=== PATIENT | female | born 1950 | race Caucasian/White ===

== ENCOUNTER 2019-05-26 18:17 | Observation (INO) | payer OTHER ==
[~2019-05-26] VITALS: Ht 172.7 cm; Wt 102.1 kg
[2019-05-26 18:21] VITALS: Ht 172.7 cm; Wt 102.1 kg
--- NOTE | 2019-05-26 18:24 | NUR ---
BIB [facility] S/P INGESTTION OF LARGE PIECE BEEF. HEIMLICK MANEAVER PROVIDED BY , THEN PD, IN AN ATTEMPT TO DISLODGE ITEM FROM ESOPHAGUS. AIRWAY PATENT AT PRESENT. SKIN WNL. COMFORT MEASURES AND SUPPORTIVE CARE INITIATED. PREP FOR ERMD MSE. AGENCY DOCUMENTATION DONE BY Staff Name/Title - :ALEENA CHICAS RN General Compression User ID - :[id number] Agency Name - :CERTIFIED Time Documented - From - :0700 To - :1900
--- NOTE | 2019-05-26 19:22 | NUR ---
CONTINUED CARE ENDORSED TO LEXIE FARMER. AIRWAY PATENT. RESP UNLAB AND EVEN. NO STRIDOR. MINIMAL DROOL. SUCTION PROVIDED.
--- NOTE | 2019-05-26 19:57 | NUR ---
DAUGHTER AT BEDSIDE BLANKET PROVIDED TO PATIENT FOR COMFORT NO NEW COMPLAINTS AT THIS TIME
--- NOTE | 2019-05-26 20:02 | NUR ---
PATIENT STATES THAT SHE WAS EATING DINNER WITH HER AT 1730 AND SHE FELT A PIECE OF STEAK GET STUCK IN HER THROAT SHE DENIES AIRWAY OCCLUSION AT THIS TIME BUT STATES THAT SHE CAN NOT SWALLOW SHE STATES THAT SHE HAS A INCREASE IN ORAL SECREATIONS AND SHE IS SPITTING THEM IN A VOMIT BAG, PATIENT IS ABLE TO SPEAK FULL SENTENCES AND HAS NO SIGNS OF DISTRESS AT THIS TIME BUT STATES THAT SHE STILL FEELS THE MEAT IN HER THROAT
--- NOTE | 2019-05-26 21:00 | NUR ---
PATIENT AMBULATED TO THE RESTROOM AND BACK WITHOUT COMPLICATION PATIENT WAS ASSISTED BY HER .
--- NOTE | 2019-05-26 22:45 | NUR ---
PATIENT RESTING LEFT LATERAL POSITION WITH NOT S/S OF DISCOMFORT ON AQUATICS DIRECTOR WILL CONTINUE TO MONITOR
--- NOTE | 2019-05-26 23:51 | NUR ---
REPORT GIVEN TO ROBERT FARMER ON THE UNIT ALL QUESTIONS ADDRESSED
[2019-05-27 00:18] VITALS: BP 144/64
[2019-05-27 05:37] VITALS: BP 130/78
--- NOTE | 2019-05-27 05:53 | NUR ---
PATIENT ADMIT LAST NIGHT. STATES SHE CHOKED ON A PIECE OF MEAT DURING DINNER. PERFORMED HEIMLICH MANEUVER WITH NO RESULTS. PATIENT STATES SHE STILL FEELS THE "PIECE OF MEAT STILL LODGED IN THROAT." EDUCATED ON IMPORTANCE OF REMAINING NPO. SCHEDULED FOR EGD THIS AM. AT 0530 PATIENT REQUESTING ICE WATER, STATES THE "PIECE OF MEAT WENT DOWN HER THROAT." STATES SHE WAS ABLE TO FEEL THE MEAT BEING DISLODGED FROM HER THROAT. TOLERATING ICE CHIPS. NO DISTRESS NOTED. CALL LIGHT WITHIN REACH. DENIES C/O OF PAIN OR DISCOMFORT. WILL CONTINUE TO MONITOR. REINSTRUCTED TO CALL FOR ASSISTANCE WHEN NEEDED.
--- NOTE | 2019-05-27 07:26 | NUR ---
Recieved report from [facility] nurse. Patient awake and oriented. spouse is at the bedsie. IV patent and intact to right ac.
[2019-05-27 08:15] VITALS: BP 109/55
--- NOTE | 2019-05-27 08:36 | NUR ---
MORNING ASSESSMENT PERFORMED ON PATIENT. PATIENT IS TALKATIVE. AWAKE, ALERT, ORIENTED. PATIENT STATES THAT SHE SWALLOWED PRIOR OBSTRCUTION IN THROAT. LUNG SOUNDS CLEAR TO AUSCULTATION. PATIENT STILL NPO UNTIL CONSULT WITH DR. HORAN.
[2019-05-27 09:12] LABS: PLATELET COUNT 203 x10^3mcL (130-400); RED CELL DISTRIBUTION WIDTH 12.7 % (11.5-14.5)
[2019-05-27 09:25] LABS: CALCIUM 8.3 mg/dL (8.5-10.1); CARBON DIOXIDE 31.3 mmol/L (21-32); CHLORIDE SERUM 109 mmol/L (98-107); CREATININE SERUM 0.9 mg/dL (0.6-1.0); GFR1 > 60 mL/min; GLUCOSE SERUM 102 mg/dL (74-106); POTASSIUM SERUM 4.1 mmol/L (3.5-5.1); SODIUM SERUM 143 mmol/L (136-145)
--- NOTE | 2019-05-27 10:29 | NUR ---
Dr. Servin notified that patient passed throat obstruction. Dr. Servin also notified that patient refused EGD procedure. Dr. Servin updated patient's diet to soft mechanical. Will continue to monitor.
[2019-05-27 11:58] VITALS: BP 109/55
[2019-05-27 12:11] VITALS: BP 127/70
[2019-05-27 12:46] VITALS: BP 127/70
--- NOTE | 2019-05-27 13:39 | NUR ---
Discharge instructions given to patient. Patient instructed to follow up with primary care physician within 2-3 days. IV removed intact. Patient and spouse escorted to lobby by LOG GRADER.
== END 2019-05-27 13:17 | disposition home or self-care (01) | DRG 392 ==
LOC: ED 18:17 → DU 23:31
PROVIDERS: ADMIT Internal Medicine Pulmonary Disease
DX: K22.2 Esophageal obstruction (principal); T18.128A Food in esophagus causing other injury, initial encounter; R13.10 Dysphagia, unspecified; X58.XXXA Exposure to other specified factors, initial encounter; Y92.009 Unspecified place in unspecified non-institutional (private) residence as the place of occurrence of the external cause
CPT/HCPCS: G0378; J1610; J7042